=== PATIENT | female | born 1995 | race Caucasian/White ===

== ENCOUNTER 2016-08-29 01:07 | Outpatient (CLI) | payer OTHER ==
[~2016-08-29] VITALS: Ht 165.1 cm; Wt 148.0 kg
[2016-08-29 01:15] VITALS: BP 110/59
[2016-08-29] MEDS ORDERED: PRENTAB9 PO (01:20)
[2016-08-29] MEDS ORDERED: ONDANSETRON 4MG/2ML VIAL (J2405) IV ONE (01:45)
[2016-08-29] MEDS ORDERED: LR 1,000 ML IV ONE (01:45)
[2016-08-29] MEDS ORDERED: LR 1,000 ML IV SCH (01:45)
[2016-08-29 03:47] VITALS: BP 91/54
--- NOTE | 2016-08-29 05:44 | IPNPDOC ---
Text Note Date of Service The patient was seen on 08/29/16. NOTE Izabella is a 21yo with a calhoun IUP at approximately 25wk who presents to triage complaining of multiple episodes of vomiting a few hours after eating ribs out at a restaurant. She denies f/c. No diarrhea. Feels movement. No vaginal bleeding or LOF. No cramping or ctx or abdominal pain. Objective: Vital signs wnl, afebrile NST: Moderate variability, pos accels, neg decels. Cat I FHRT. Rembert: no contractions or uterine irritability. Physical Exam- General: WDWN gravid female in NAD Mental : AAOx3 Abdominal: Gravid abdomen without guarding/rebound. No fundal tenderness. Extremity: no LE edema bilaterally. Assessment: Izabella is a 21yo with a calhoun IUP at approximately 25wk c /o nausea and vomiting with clinical presentation suggestive of gastritis, likely of viral origin vs food poisoning. Vitals stable without abnormalities on exam. Cat I FHRT without CTXs or uterine irritability. Plan: -Patient given 1L LR in triage -4mg Zofran IV in triage pt reports feeling much better -Will place Rx zofran to [place] in the event that nausea resumes -encouraged continued hydration -F/U at next scheduled OB appointment later this month, knows to do 1hr glucola prior -Return precautions discussed -Medrec reviewed Dr. Aaron Martínez MD [facility] VS,Fishbone, I+O VS, Fishbone, I+O Vital Signs Date Time Temp Pulse Resp B/P (MAP) Pulse Ox O2 Delivery O2 Flow Rate FiO2 08/29/16 03:47 73 91/54 (66) 08/29/16 03:47 97.4 AARON MARTÍNEZ MD August 29, 2016 05:44
== END 2016-08-29 06:07 | disposition home or self-care (01) ==
LOC: M LDO 01:07
PROVIDERS: ATTEND Obstetrics & Gynecology
DX: O21.2 Late vomiting of pregnancy (principal); Z3A.25 25 weeks gestation of pregnancy
CPT/HCPCS: 59025; 96374; J2405

== ENCOUNTER 2016-12-01 20:22 | Outpatient (CLI) | payer OTHER ==
[~2016-12-01] VITALS: Ht 165.1 cm; Wt 69.0 kg
[~2016-12-01 20:22] MED LIST: PRENTAB9 PO
[2016-12-01 20:37] VITALS: BP 130/84
[2016-12-01 22:11] VITALS: BP 121/88
[2016-12-02 00:07] VITALS: BP 121/77
[2016-12-02] MEDS ORDERED: ACET50TA PO (14:59)
[2016-12-02] MEDS ORDERED: ZANT1TAB PO (14:59)
== END 2016-12-02 01:05 | disposition home or self-care (01) ==
LOC: M LDO 20:22
PROVIDERS: ATTEND Obstetrics & Gynecology
DX: O47.1 False labor at or after 37 completed weeks of gestation (principal); Z3A.39 39 weeks gestation of pregnancy; N89.9 Noninflammatory disorder of vagina, unspecified; Z88.0 Allergy status to penicillin; O26.893 Other specified pregnancy related conditions, third trimester

== ENCOUNTER 2016-12-02 14:44 | Inpatient (IN) | payer OTHER ==
[~2016-12-02] VITALS: Ht 165.1 cm; Wt 70.0 kg
[2016-12-02] MEDS ORDERED: ZANT1TAB PO (14:59)
[2016-12-02] MEDS ORDERED: ACET50TA PO (14:59)
[2016-12-02 15:01] VITALS: BP 130/78
[2016-12-02 16:31] VITALS: BP 133/91
[2016-12-02 18:04] VITALS: BP 124/81
[2016-12-02] MEDS ORDERED: LACTATED RINGER'S 1000 ML IV STA (18:40)
[2016-12-02] MEDS ORDERED: BICITRA 30ML SOLN UDC As Ordered ONE (19:25)
[2016-12-02] MEDS ORDERED: ceFAZolin 2 GM/D5W 50 ML IV BAG (J0690) As Ordered ONE (19:26)
[2016-12-02] MEDS ORDERED: AZITHROMYCIN INJ 500MG VIAL (J0456) As Ordered ONE (19:27)
[2016-12-02] MEDS ORDERED: METHYLERGONOVINE MALEATE 0.2 MG/ML VIAL (J2210) As Ordered ONE (19:43)
[2016-12-02] MEDS ORDERED: fentaNYL 100 MCG/2 ML INJECTION (J3010) As Ordered ONE ×2 (19:50→19:52)
[2016-12-02] MEDS ORDERED: ONDANSETRON 4MG/2ML VIAL (J2405) As Ordered ONE (19:50)
[2016-12-02] MEDS ORDERED: OXYTOCIN INJ 10 UNITS/ML VIAL (J2590) As Ordered ONE (19:50)
[2016-12-02] MEDS ORDERED: PHENYLephrine HCL 500 MCG/5 ML (100MCG/ML) SYRINGE (J2370) As Ordered ONE (19:50)
[2016-12-02] MEDS ORDERED: KETOROLAC 60 MG/2 ML VIAL (J1885) As Ordered ONE (19:50)
[2016-12-02] MEDS ORDERED: PROPOFOL 200 MG/20 ML VIAL As Ordered ONE (19:50)
[2016-12-02] MEDS ORDERED: SUCCINYLCHOLINE 100 MG/5 ML SYRINGE (J0330) As Ordered ONE (19:50)
[2016-12-02] MEDS ORDERED: ePHEDrine SULFATE 25 MG/5 ML(5MG/ML) SYRINGE As Ordered ONE (19:50)
[2016-12-02 20:13] LABS: CORD GAS HCO3 A 28.5 MEQ/L; CORD GAS O2 SAT A 42.1 %; CORD GAS PCO2 A 60.7 mmHg; CORD GAS PH A 7.29 UNITS; CORD GAS PO2 A 20.3 mmHg; CORD GAS SBC A 22.9 MEQ/L; CORD GAS TCO2 A 30.4 MEQ/L
[2016-12-02 20:14] LABS: CORD GAS ABE V -2.5; CORD GAS HCO3 V 22.9 MEQ/L; CORD GAS PCO2 V 41.7 mmHg; CORD GAS PH V 7.357 UNITS; CORD GAS PO2 V 38.4 mmHg; CORD GAS TCO2 V 24.2 MEQ/L
[2016-12-02] MEDS ORDERED: RHOGAM 300 MCG (1500 IU) INJ (J2790) IM SCH (20:15)
[2016-12-02] MEDS ORDERED: PROMETHAZINE 25 MG TAB PO PRN (20:15)
[2016-12-02] MEDS ORDERED: MEASLES,MUMPS,RUBELLA VACCINE INJ (MMR-II) (90707) SC SCH (20:15)
[2016-12-02] MEDS ORDERED: METHYLERGONOVINE MALEATE 0.2 MG/ML VIAL (J2210) IM PRN (20:15)
[2016-12-02] MEDS ORDERED: ONDANSETRON 4MG/2ML VIAL (J2405) IV PRN ×2 (20:15→20:45)
[2016-12-02] MEDS: KETOROLAC 30 MG/ML VIAL (J1885) IV SCH (20:30)
[2016-12-02 20:40] LABS: MEAN CORPUSCULAR HEMOGLOBIN 30.9 pg (27.0-33.0); MEAN CORPUSCULAR HGB CONC 34.9 g/dl (32.0-36.5); MEAN CORPUSCULAR VOLUME 88.7 fl (80.0-96.0); RED CELL DISTRIBUTION WIDTH 13.4 % (11.5-14.5)
[2016-12-02] MEDS ORDERED: PERCOCET 5MG/325MG TAB As Ordered ONE (20:44)
[2016-12-02] MEDS ORDERED: diphenhydrAMINE INJ 50MG/ML VIAL (J1200) IV PRN (20:45)
[2016-12-02] MEDS ORDERED: LR 1,000 ML IV SCH (20:45)
[2016-12-02] MEDS ORDERED: MORPHINE 2 MG/ML 1ML SYRINGE IV PRN (20:45)
[2016-12-02] MEDS ORDERED: fentaNYL 100 MCG/2 ML INJECTION (J3010) IV PRN (20:45)
[2016-12-02] MEDS ORDERED: NALBUPHINE HCL 10 MG/ML AMP (J2300) IV PRN (20:45)
[2016-12-02] MEDS ORDERED: PERCOCET 5MG/325MG TAB PO PRN (21:00)
[2016-12-02] MEDS: DOCUSATE SODIUM 100 MG CAP PO SCH (21:00)
[2016-12-02 21:15] VITALS: BP 133/82
[2016-12-02 21:45] VITALS: BP 119/70
[2016-12-02 23:00] VITALS: BP 126/78
[2016-12-02] MEDS ORDERED: AZITHROMYCIN INJ 500 MG, VIAL MATE ADAPTER 1 EACH in D5W 250 ML IV ONE (23:00)
[2016-12-02] MEDS ORDERED: BICITRA 30ML SOLN UDC PO ONE (23:00)
[2016-12-03] VITALS: BP 129/80
[2016-12-03] MEDS: LR 1,000 ML IV SCH ×2 (00:55→04:07)
[2016-12-03] MEDS: PERCOCET 5MG/325MG TAB PO PRN ×5 (00:56→22:27)
[2016-12-03] MEDS: KETOROLAC 30 MG/ML VIAL (J1885) IV SCH ×4 (02:21→20:11)
[2016-12-03 05:30] VITALS: BP 124/81
[2016-12-03 06:38] LABS: MEAN CORPUSCULAR HEMOGLOBIN 30.5 pg (27.0-33.0); MEAN CORPUSCULAR HGB CONC 34.4 g/dl (32.0-36.5); MEAN CORPUSCULAR VOLUME 88.7 fl (80.0-96.0); RED CELL DISTRIBUTION WIDTH 13.7 % (11.5-14.5); WHITE BLOOD COUNT 12.2 K/mm3 (4.0-10.0)
--- NOTE | 2016-12-03 07:04 | REP ---
SUPINE ABDOMEN: 12/02/2016. Clinical history: Emergency surgery, evaluate for foreign body. Findings. Single exam of the mid abdomen to the pelvis shows slight diastases of the symphysis pubis. Pelvic ring otherwise intact. SI joints symmetric and normal. There is no radiopaque foreign body evident. Signed by Bj Yarbrough MD 12/03/2016 08:03 A
[2016-12-03] MEDS: PRENATAL VITAMINS CHEWABLE TABLET PO SCH (08:01)
[2016-12-03] MEDS: DOCUSATE SODIUM 100 MG CAP PO SCH ×2 (08:01→20:11)
[2016-12-03 10:00] VITALS: BP 120/73
[2016-12-03 14:00] VITALS: BP 114/72
[2016-12-03 17:56] VITALS: BP 109/60
[2016-12-03 22:10] VITALS: BP 112/61
[2016-12-03] MEDS: IBUPROFEN 800 MG TAB PO SCH (22:30)
[2016-12-04] MEDS: PERCOCET 5MG/325MG TAB PO PRN ×2 (00:24→12:12)
[2016-12-04 06:10] VITALS: BP 118/59
[2016-12-04] MEDS: IBUPROFEN 800 MG TAB PO SCH (06:18)
[2016-12-04] MEDS: PRENATAL VITAMINS CHEWABLE TABLET PO SCH (07:30)
[2016-12-04] MEDS: DOCUSATE SODIUM 100 MG CAP PO SCH (07:30)
[2016-12-04] MEDS ORDERED: OXYC1TAB23 PO (12:35)
[2016-12-04] MEDS ORDERED: COLA100C5 PO (12:35)
[2016-12-04] MEDS ORDERED: IBUP-1114 PO (12:35)
== END 2016-12-04 13:30 | disposition home or self-care (01) | DRG 766 ==
LOC: M LDO 14:44 → M LDI 18:50 → M OBS 12-03 07:18
PROVIDERS: ADMIT Obstetrics & Gynecology; ATTEND Obstetrics & Gynecology
PROC: 10D00Z1 Extraction of Products of Conception, Low, Open Approach (ICD-10-PCS; principal; 2016-12-02 20:19)
DX: O76 Abnormality in fetal heart rate and rhythm complicating labor and delivery (principal); Z37.0 Single live birth; Z3A.39 39 weeks gestation of pregnancy